=== PATIENT | male | born 1965 | race Caucasian/White ===

== ENCOUNTER 2018-07-23 04:00 | Observation (INO) ==
[2018-07-23] MEDS ORDERED: Isovue-370 500 ML BOTTLE IVP ONE (04:26)
[2018-07-23 05:12] LABS: Basophils # 0.1 K/mcL (0.0-0.2); Basophils % 0.7 %; Eosinophils # 0.2 K/mcL (0.0-0.6); Hematocrit 41.5 % (37.5-50.1); Hemoglobin 13.9 g/dL (12.9-16.9); Immature Granulocytes % 0.4 % (0-4); Lymphocytes % 12.7 %; Mean Corpuscular HGB Conc 33.5 g/dL (31.6-35.5); Mean Corpuscular Hemoglobin 30.3 pg (28.0-33.3); Mean Corpuscular Volume 90.6 fL (83.0-100.0); Monocytes # 0.7 K/mcL (0.0-1.3); Monocytes % 9.7 %; Neutrophils # 5.7 K/mcL (1.6-8.9); Platelet Count 256 K/mcL (140-400); Red Blood Count 4.58 M/mcL (4.19-5.50); Red Cell Distribution Width 12.5 % (11.5-14.5); Segmented Neutrophils % 74.5 %
[2018-07-23 05:36] LABS: Alanine Aminotransferase 23 Units/L (7-52); Albumin 3.9 g/dL (3.5-5.7); Albumin/Globulin Ratio 1.2 (1.1-2.2); Alkaline Phosphatase 169 Units/L (34-104); Aspartate Amino Transferase 18 Units/L (13-39); BUN/Creatinine Ratio 10 (6-26); Bilirubin,Direct 0.2 mg/dL (0.0-0.2); Bilirubin,Total 1.2 mg/dL (0.3-1.0); Blood Urea Nitrogen 12 mg/dL (6-20); Calcium 9.8 mg/dL (8.6-10.3); Carbon Dioxide 27 mEq/L (23-29); Chloride 107 mEq/L (98-107); Ethanol < 10 mg/dL (Less than 10); Globulin 3.3 g/dL (2.4-3.5); Glucose 114 mg/dL (70-105); Osmolality,Calculated 295 (280-300); Potassium 3.5 mEq/L (3.5-5.1); Sodium 142 mEq/L (136-145); Total Protein 7.2 g/dL (6.4-8.9); Troponin I < 0.03 ng/mL (< 0.04); eGFR For Non-African Americans > 60 (> 60)
--- NOTE | 2018-07-23 05:47 | Emergency Department Note ---
Disposition Clinical Impression: Pulmonary embolism Qualifiers: Pulmonary embolism type: unspecified Chronicity: acute Acute cor pulmonale presence: with acute cor pulmonale Qualified Code(s): I26.09 - Other pulmonary embolism with acute cor pulmonale Disposition: Still a Patient Condition: Fair Referrals: NONE,PCP [Primary Care Provider] - Forms: ED Satisfaction Letter Time of Disposition: 07:12 General Adult HPI - General Chief complaint: ED Shortness of Breath/Dyspnea Stated complaint: chest pain Time Seen by Provider: 07/23/18 04:23 Source: EMS Mode of arrival: EMS Limitations: no limitations Nursing Notes Reviewed: Yes Vital Signs Reviewed: Yes - History of Present Illness HPI Narrative: Pt is a 53M with Pmhx of remote HTN, alcohol abuse, recently seen at this facility after falling down stairs and sustaining facial fracture and lip laceration. Pt was transferred to [place] for that visit, but was given the option to stay and have surgery or return for further surgical consult later in the week. Uncertain if he had to sign out AMA - EMS reports he told them that he did, but pt denies this to me. Pt now returns with acute shortness of breath that developed while he was sleeping overnight about an hour [employer]. Pt states that the left side of his face has been numb since he was stitched up at [place] for sutures. Pt is A&Ox3. Pt admits to six pack of beer habit up until after his episode on . Pt denies any illicit substances. Pain Scale: 10 - Related Data Previous Rx's Medication Instructions Recorded Aspirin 81 mg PO DAILY #30 tab.chew 11/05/15 Lisinopril [Zestril] 5 mg PO DAILY #30 tablet 11/05/15 Allergies Allergy/AdvReac Type Severity Reaction Status Date / Time Cyclobenzaprine Allergy Rash Verified 11/17/16 18:55 [From Flexeril] Constitutional: Denies: fever, chills Cardiovascular: Denies: chest pain Respiratory: Reports: dyspnea Gastrointestinal: Denies: abdominal pain, nausea, vomiting, diarrhea, constipation Musculoskeletal: Denies: back pain, neck pain Neurological: Reports: headache. Denies: weakness, numbness, paresthesias Endocrine: Denies: fatigue, heat or cold intolerance Hematological/Lymphatic: Denies: easy bleeding, easy bruising Allergic/Immunologic: Denies: facial swelling, urticaria Past Medical History - Past Medical History Medical history: Reports: hypertension Surgical history: Reports: herniorrhaphy (right) Psychiatric history: Reports: no psych history - Social History Smoking Status: Never smoker Smokeless Tobacco Status: No Alcohol use: Reports: heavy Drug use: Reports: none Physical Exam - General Limitations: no limitations General appearance: alert - Head Head exam: other (left sided forehead abrasion, healing. Left lateral upper lip abrasion, healing) - Eye Eye exam: Present: PERRL, EOMI, other (ecchymosis underneath left eye) - ENT ENT exam: normal exam, normal oropharynx - Neck Neck exam: Present: normal inspection, full ROM - Chest Chest inspection: Present: normal inspection, symmetric chest wall rise - Respiratory Respiratory exam: Present: normal lung sounds bilaterally. Absent: respiratory distress - Cardiovascular Cardiovascular exam: Present: regular rate, normal rhythm - Abdominal Exam Abdominal exam: Present: soft, Non-Tender - Extremities Exam Extremities exam: Present: normal inspection, full ROM - Back Exam Back exam: Present: normal inspection, full ROM - Neurological Exam Neurological exam: Present: alert, oriented X3 - Psychiatric Psychiatric exam: Present: normal affect, normal mood - Skin Skin exam: Present: warm, dry, intact Course Course Narrative: With recent trauma, concern for PE, as well as occult rib fractures. Will obtain CTA chest. Will get UDS, CBC, BMP. - Reevaluation(s) Reevaluation #1: [facility] called and states he has selena PE, pulmonary nodule, CAD. Will start heparin. Time: 06:07 Vital Signs Temperature 98.7 F 07/23/18 04:15 Pulse Rate 81 07/23/18 04:15 Respiratory Rate 20 07/23/18 04:15 Blood Pressure 157/118 07/23/18 04:15 O2 Sat by Pulse Oximetry 98 07/23/18 04:15 Temperature 98.7 F 07/23/18 04:15 Pulse Rate 81 07/23/18 04:15 Respiratory Rate 20 07/23/18 04:15 Blood Pressure 157/118 07/23/18 04:15 O2 Sat by Pulse Oximetry 98 07/23/18 04:15 Oxygen Delivery Oxygen Delivery Room Air Medical Decision Making - MDM Narrative Medical decision making narrative: Pt will be signed out to day shift - Dr. Kennedy Samuel and Dr. Kirk Haynes. - Medical Records Medical records reviewed: Yes I reviewed the patient's medical records. - Lab Data Lab results reviewed: Yes I reviewed the patient's lab results. Result diagrams: 07/23/18 05:01 07/23/18 05:01 Lab Results 07/23/18 07/23/18 Range/Units 05:01 05:01 WBC 7.6 (4.3-11.1) K/mcL RBC 4.58 (4.19-5.50) M/mcL Hgb 13.9 (12.9-16.9) g/dL Hct 41.5 (37.5-50.1) % MCV 90.6 (83.0-100.0) fL MCH 30.3 (28.0-33.3) pg MCHC 33.5 (31.6-35.5) g/dL RDW 12.5 (11.5-14.5) % Plt Count 256 (140-400) K/mcL MPV 10.0 (9.4-12.4) fL Immature Gran % 0.4 (0-4) % Seg Neutrophils % 74.5 % Lymphocytes % 12.7 % Monocytes % 9.7 % Eosinophils % 2.0 % Basophils % 0.7 % Neutrophils # 5.7 (1.6-8.9) K/mcL Lymphocytes # 1.0 (0.6-4.6) K/mcL Monocytes # 0.7 (0.0-1.3) K/mcL Eosinophils # 0.2 (0.0-0.6) K/mcL Basophils # 0.1 (0.0-0.2) K/mcL Sodium 142 (136-145) mEq/L Potassium 3.5 (3.5-5.1) mEq/L Chloride 107 (98-107) mEq/L Carbon Dioxide 27 (23-29) mEq/L BUN 12 (6-20) mg/dL Creatinine 1.15 (0.70-1.30) mg/dL Est GFR ( Amer) > 60 (> 60) Est GFR (Non-Af Amer) > 60 (> 60) BUN/Creatinine Ratio 10 (6-26) Glucose 114 H (70-105) mg/dL Calculated Osmolality 295 (280-300) Calcium 9.8 (8.6-10.3) mg/dL Total Bilirubin 1.2 H (0.3-1.0) mg/dL Direct Bilirubin 0.2 (0.0-0.2) mg/dL Indirect Bilirubin 1.0 (0.0-1.2) mg/dL AST 18 (13-39) Units/L ALT 23 (7-52) Units/L Alkaline Phosphatase 169 H (34-104) Units/L Troponin I < 0.03 (< 0.04) ng/mL Serum Total Protein 7.2 (6.4-8.9) g/dL Albumin 3.9 (3.5-5.7) g/dL Globulin 3.3 (2.4-3.5) g/dL Albumin/Globulin Ratio 1.2 (1.1-2.2) Ethyl Alcohol < 10 (Less than 10) mg/dL - Radiology Data Radiology results reviewed: Yes I reviewed the patient's radiology results. Chest CTA 07/23/18 04:28 IMPRESSION: 1. Bilateral pulmonary emboli without evidence for right ventricular strain. 2. No rib fracture identified. 3. Coronary artery disease. 4. Right upper lobe pulmonary nodule. Recommend follow-up: Regardless of risk consider CT at 3 months, PET/CT, or tissue sampling. Critical results were called by Dr. Rashi Banegas MD to [facility] on 07/23/2018 at 06:07. D/ / Rashi Banegas MD / Rashi Banegas MD Interpreting Provider: Rashi Banegas MD - EKG Data EKG #1 EKG attestation: Yes I reviewed and interpreted this EKG. EKG results narrative: HR 72, rhythm sinus, axis normal. DC 164, QRS 105, QTc 415. No evidence of ST e levation or depression. Diffuse T wave flattening.
[2018-07-23] MEDS ORDERED: *HR* Heparin 5,000 UNIT/ML VIAL IVP PRN ×2 (06:34)
[2018-07-23] MEDS ORDERED: *HR* Heparin 5,000 UNIT/ML VIAL IVP ONE (06:34)
--- NOTE | 2018-07-23 06:43 | Emergency Department Note ---
Disposition Clinical Impression: Pulmonary embolism Qualifiers: Pulmonary embolism type: unspecified Chronicity: acute Acute cor pulmonale presence: with acute cor pulmonale Qualified Code(s): I26.09 - Other pulmonary embolism with acute cor pulmonale Disposition: Still a Patient Condition: Fair Referrals: NONE,PCP [Primary Care Provider] - Forms: ED Satisfaction Letter General Adult HPI - General Chief complaint: ED Shortness of Breath/Dyspnea Stated complaint: chest pain Time Seen by Provider: 07/23/18 04:23 Source: EMS Mode of arrival: EMS Limitations: no limitations Nursing Notes Reviewed: Yes Vital Signs Reviewed: Yes - History of Present Illness Pain Scale: 10 - Related Data Previous Rx's Medication Instructions Recorded Aspirin 81 mg PO DAILY #30 tab.chew 11/05/15 Lisinopril [Zestril] 5 mg PO DAILY #30 tablet 11/05/15 Allergies Allergy/AdvReac Type Severity Reaction Status Date / Time Cyclobenzaprine Allergy Rash Verified 11/17/16 18:55 [From Flexeril] Constitutional: Denies: fever, chills Cardiovascular: Denies: chest pain Respiratory: Reports: dyspnea Gastrointestinal: Denies: abdominal pain, nausea, vomiting, diarrhea, constipation Musculoskeletal: Denies: back pain, neck pain Neurological: Reports: headache. Denies: weakness, numbness, paresthesias Endocrine: Denies: fatigue, heat or cold intolerance Hematological/Lymphatic: Denies: easy bleeding, easy bruising Allergic/Immunologic: Denies: facial swelling, urticaria Past Medical History - Past Medical History Medical history: Reports: hypertension Surgical history: Reports: herniorrhaphy (right) Psychiatric history: Reports: no psych history - Social History Smoking Status: Never smoker Smokeless Tobacco Status: No Alcohol use: Reports: heavy Drug use: Reports: none Physical Exam - General Limitations: no limitations General appearance: alert Course Vital Signs Temperature 98.7 F 07/23/18 04:15 Pulse Rate 81 07/23/18 04:15 Respiratory Rate 20 07/23/18 04:15 Blood Pressure 157/118 07/23/18 04:15 O2 Sat by Pulse Oximetry 98 07/23/18 04:15 Temperature 98.7 F 07/23/18 04:15 Pulse Rate 70 07/23/18 07:16 Respiratory Rate 16 07/23/18 07:16 Blood Pressure 160/99 07/23/18 07:16 O2 Sat by Pulse Oximetry 98 07/23/18 07:16 Oxygen Delivery Oxygen Delivery Room Air Medical Decision Making - Medical Records Medical records reviewed: Yes I reviewed the patient's medical records. - Lab Data Lab results reviewed: Yes I reviewed the patient's lab results. Result diagrams: 07/23/18 05:01 07/23/18 05:01 Lab Results 07/23/18 07/23/18 07/23/18 Range/Units 05:01 05:01 06:55 WBC 7.6 (4.3-11.1) K/mcL RBC 4.58 (4.19-5.50) M/mcL Hgb 13.9 (12.9-16.9) g/dL Hct 41.5 (37.5-50.1) % MCV 90.6 (83.0-100.0) fL MCH 30.3 (28.0-33.3) pg MCHC 33.5 (31.6-35.5) g/dL RDW 12.5 (11.5-14.5) % Plt Count 256 (140-400) K/mcL MPV 10.0 (9.4-12.4) fL Immature Gran % 0.4 (0-4) % Seg Neutrophils % 74.5 % Lymphocytes % 12.7 % Monocytes % 9.7 % Eosinophils % 2.0 % Basophils % 0.7 % Neutrophils # 5.7 (1.6-8.9) K/mcL Lymphocytes # 1.0 (0.6-4.6) K/mcL Monocytes # 0.7 (0.0-1.3) K/mcL Eosinophils # 0.2 (0.0-0.6) K/mcL Basophils # 0.1 (0.0-0.2) K/mcL PT (9.4-12.1) Seconds INR APTT (26.0-36.0) Seconds Heparin Anti-Xa, Unfract 0.00 L (0.30-0.70) IU/mL Sodium 142 (136-145) mEq/L Potassium 3.5 (3.5-5.1) mEq/L Chloride 107 (98-107) mEq/L Carbon Dioxide 27 (23-29) mEq/L BUN 12 (6-20) mg/dL Creatinine 1.15 (0.70-1.30) mg/dL Est GFR ( Amer) > 60 (> 60) Est GFR (Non-Af Amer) > 60 (> 60) BUN/Creatinine Ratio 10 (6-26) Glucose 114 H (70-105) mg/dL Calculated Osmolality 295 (280-300) Calcium 9.8 (8.6-10.3) mg/dL Total Bilirubin 1.2 H (0.3-1.0) mg/dL Direct Bilirubin 0.2 (0.0-0.2) mg/dL Indirect Bilirubin 1.0 (0.0-1.2) mg/dL AST 18 (13-39) Units/L ALT 23 (7-52) Units/L Alkaline Phosphatase 169 H (34-104) Units/L Troponin I < 0.03 (< 0.04) ng/mL Serum Total Protein 7.2 (6.4-8.9) g/dL Albumin 3.9 (3.5-5.7) g/dL Globulin 3.3 (2.4-3.5) g/dL Albumin/Globulin Ratio 1.2 (1.1-2.2) Ethyl Alcohol < 10 (Less than 10) mg/dL 07/23/18 Range/Units 06:55 WBC (4.3-11.1) K/mcL RBC (4.19-5.50) M/mcL Hgb (12.9-16.9) g/dL Hct (37.5-50.1) % MCV (83.0-100.0) fL MCH (28.0-33.3) pg MCHC (31.6-35.5) g/dL RDW (11.5-14.5) % Plt Count (140-400) K/mcL MPV (9.4-12.4) fL Immature Gran % (0-4) % Seg Neutrophils % % Lymphocytes % % Monocytes % % Eosinophils % % Basophils % % Neutrophils # (1.6-8.9) K/mcL Lymphocytes # (0.6-4.6) K/mcL Monocytes # (0.0-1.3) K/mcL Eosinophils # (0.0-0.6) K/mcL Basophils # (0.0-0.2) K/mcL PT 13.0 H (9.4-12.1) Seconds INR 1.2 APTT 30.6 (26.0-36.0) Seconds Heparin Anti-Xa, Unfract (0.30-0.70) IU/mL Sodium (136-145) mEq/L Potassium (3.5-5.1) mEq/L Chloride (98-107) mEq/L Carbon Dioxide (23-29) mEq/L BUN (6-20) mg/dL Creatinine (0.70-1.30) mg/dL Est GFR ( Amer) (> 60) Est GFR (Non-Af Amer) (> 60) BUN/Creatinine Ratio (6-26) Glucose (70-105) mg/dL Calculated Osmolality (280-300) Calcium (8.6-10.3) mg/dL Total Bilirubin (0.3-1.0) mg/dL Direct Bilirubin (0.0-0.2) mg/dL Indirect Bilirubin (0.0-1.2) mg/dL AST (13-39) Units/L ALT (7-52) Units/L Alkaline Phosphatase (34-104) Units/L Troponin I (< 0.04) ng/mL Serum Total Protein (6.4-8.9) g/dL Albumin (3.5-5.7) g/dL Globulin (2.4-3.5) g/dL Albumin/Globulin Ratio (1.1-2.2) Ethyl Alcohol (Less than 10) mg/dL - Radiology Data Radiology results reviewed: Yes I reviewed the patient's radiology results. Chest CTA 07/23/18 04:28 IMPRESSION: 1. Bilateral pulmonary emboli without evidence for right ventricular strain. 2. No rib fracture identified. 3. Coronary artery disease. 4. Right upper lobe pulmonary nodule. Recommend follow-up: Regardless of risk consider CT at 3 months, PET/CT, or tissue sampling. Critical results were called by Dr. Rashi Banegas MD to [facility] on 07/23/2018 at 06:07. D/ / Rashi Banegas MD / Rashi Banegas MD Interpreting Provider: Rashi Banegas MD - EKG Data EKG #1 EKG attestation: Yes I reviewed and interpreted this EKG. EKG results narrative: EKG shows normal sinus rhythm with ventricular rate of 72. No significant ST segment elevation or depression. Critical Care Time Critical Care Time: Yes Total Critical Care Time: 45 Attestation: Critical care performed: Time is exclusive of separately billable procedures. Time includes: direct patient care, patient reassessment, coordination of patient care, interpretation of data (laboratory data, radiology data, and respiratory data), review of patient's medical records, medical consultation and documentation of patient care. Procedures included in critical care time: Procedures excluded from critical care time: Attestation Statement - Attestation Attestation: I, Tray Cho MD, personally evaluated this patient and discussed their management with the resident physician. I reviewed the resident's note and agree with the documented findings, medical decision making, and plan of care. 53-year-old male presents to the emergency department with a complaint that he awoke from sleep about 1 hour prior to arrival and could not catch his breath. No cough or fever. Some left lateral lower chest pain. Patient fell down stairs about 3 or 4 days ago and was seen here and transferred to [facility]. He apparently had a facial fracture. He complains of having this left lateral chest pain ever since the fall. By the time he arrived to the emergency department he states that his breathing was feeling somewhat better. He denies history of breathing issues. On examination patient is a well-developed well-nourished male in no acute distress. He is alert and oriented 3. There is no cyanosis or diaphoresis. There is some tenderness over the left lower lateral chest wall. No bony crepitus or subcutaneous emphysema. Breath sounds are clear and equal bilatera lly. Heart regular rate and rhythm. Abdomen soft and nontender with normal bowel sounds. EKG shows normal sinus rhythm in no acute changes. Labs reviewed. CTA of the chest showed multiple bilateral pulmonary emboli. Patient started on heparin infusion. The hospitalist, Dr. Modi, was consulted for admission. He refused to accept the patient for admission because of his facial fracture from a fall 4 days ago for which he has been evaluated at the trauma center and has outpatient follow-up. We did not feel that there was an indication this patient have to be transferred back to the trauma center so patient is signed out to the oncoming dayshift team, Dr. Haynes and Dr. Kennedy Samuel. They will discussed with the [facility] to see if they are willing to accept patient or if they also recommended transfer.
[2018-07-23] MEDS ORDERED: Heparin 25,000 UNIT/250 ML D5W 25,000 UNIT/250 ML IV.SOLN IVC SCH (06:45)
[2018-07-23 07:24] LABS: INR 1.2
[2018-07-23 07:27] LABS: Activated Partial Thrombo Time 30.6 Seconds (26.0-36.0)
[2018-07-23] MEDS ORDERED: Naloxone 0.4 MG/ML INJ IVP PRN (09:34)
[2018-07-23] MEDS ORDERED: Acetaminophen 325 MG TABLET PO PRN (09:51)
--- NOTE | 2018-07-23 10:35 | Internal Med History&Physical ---
Date of Encounter: 07/23/18 Time of Encounter: 09:00 Internal Medicine - H&P: HPI Chief complaint: Shortness of breath Admitted From: Home Plans for Post Hospital Care: Home History of present illness: Mr. Leung is a 53 year old male who has no significant past medical history presented with shortness of breath which woke him up early this morning at around 3:57 AM. The patient said that he went to bed fine but woke up trying to catch his breath. He denies any overt chest pain or dizziness or palpitations, headache, nausea or vomiting along with the symptoms. The patient drinks almost daily about 5-6 beers and has been doing so for last 30 years. About 4 days ago he was seen in the ER with an accidental fall down a flight of stairs. He was evaluated as a trauma case and had a negative head CT for intracranial bleeding but was found to have a left sided zygomatic fracture. No other fractures were also found at that time and he was sent to [facility] for evaluation as a trauma patient. As per the patient's history, he was seen and evaluated at [facility], cleared for his zygomatic fracture and a plan was to have him see an outpatient plastic surgeon for the same. The patient denies any recent prolonged hospitalization or immobility-he is in fact a very active and on his feet most of the time. He does not have any family history of blood clots or predisposition genetic to making blood clots In the ER the patient received a CTpe protocol found to have bilateral pulmonary embolism. He has been started on heparin drip and placed for observation on the medical service. Past Med Surg Social Fam HX - Past Medical History Medical history: hypertension Psychiatric history: no psych history - Past Surgical History Surgical History: herniorrhaphy Additional surgical history: hernia repair - Social History Smoking Status: Never smoker Smokeless Tobacco Status: No Alcohol use: heavy Drug use: none - Family History Mother Hx Family Endocrine Disorder: Yes (DM) - Additional Family History Additional family history: No family history suggestive of hypercoagulable state in immediate relatives Internal Medicine - H&P: Meds Aspirin 81 mg PO DAILY #30 tab.chew 11/05/15 [Rx] Lisinopril [Zestril] 5 mg PO DAILY #30 tablet 11/05/15 [Rx] Allergy/AdvReac Type Severity Reaction Status Date / Time Cyclobenzaprine Allergy Rash Verified 11/17/16 18:55 [From Flexeril] All Systems PM: A 10-system review of systems was performed and is negative for pertinent findings except as documented above in the HPI. - Constitutional Vitals: Temp Pulse Resp BP Pulse Ox 99.8 F H 66 16 148/93 94 07/23/18 10:02 07/23/18 10:02 07/23/18 10:02 07/23/18 10:02 07/23/18 10:02 Exam: GENERAL: Alert, moderate distress, cooperative EYES: PERRLA, EOMI, there is a small contusion underneath the left eye and tenderness to palpation castillo the left maxillary bone, patient also has a small contusion on the left side of the forehead EARS: External ears normal, canals clear OROPHARYNX: Lips, mucosa, and tongue normal. Teeth and gums normal. Oropharynx normal. NECK: No jugulovenous distention, No carotid bruits, Carotid pulse normal contour, Supple LUNGS: Lungs clear to auscultation, Good diaphragmatic excursion CARDIAC: Normal S1 and S2; no rubs, murmurs, or gallops, TTP over left lower rib cage ABDOMEN: Abdomen soft, non-tender, BS normal, No masses or organomegaly EXTREMITIES: Extremities normal, no deformities, edema, clubbing or skin discoloration. Good capillary refill., No ulcers NEURO: Gait normal. Reflexes normal and symmetric. Sensation grossly intact, Cranial nerves II-XII intact PULSES: 2+ radial, 2+ carotid Rest of the exam is non contributory Internal Med - H&P Results - Labs CBC & Chem 7: 07/23/18 05:01 07/23/18 05:01 Labs: Short CBC 07/23/18 Range/Units 05:01 WBC 7.6 (4.3-11.1) K/mcL Hgb 13.9 (12.9-16.9) g/dL Hct 41.5 (37.5-50.1) % Plt Count 256 (140-400) K/mcL Neutrophils # 5.7 (1.6-8.9) K/mcL BMP 07/23/18 05:01 Sodium 142 Potassium 3.5 Chloride 107 Carbon Dioxide 27 BUN 12 Creatinine 1.15 Glucose 114 H Calcium 9.8 Cardiac Enzymes 07/23/18 Range/Units 05:01 Troponin I < 0.03 (< 0.04) ng/mL Liver Function 07/23/18 Range/Units 05:01 Total Bilirubin 1.2 H (0.3-1.0) mg/dL Direct Bilirubin 0.2 (0.0-0.2) mg/dL AST 18 (13-39) Units/L ALT 23 (7-52) Units/L Alkaline Phosphatase 169 H (34-104) Units/L Albumin 3.9 (3.5-5.7) g/dL - EKG Data -: EKG Interpreted by Myself EKG shows normal: sinus rhythm Rate: normal - EKG Data Prior EKG available for review: yes When compared to previous EKG: there is no significant change - Impressions ITS Impressions Chest CTA 07/23/18 04:28 IMPRESSION: 1. Bilateral pulmonary emboli without evidence for right ventricular strain. 2. No rib fracture identified. 3. Coronary artery disease. 4. Right upper lobe pulmonary nodule. Recommend follow-up: Regardless of risk consider CT at 3 months, PET/CT, or tissue sampling. Critical results were called by Dr. Rashi Banegas MD to Hortensia New on 07/23/2018 at 06:07. D/ / Rashi Banegas MD / Rashi Banegas MD Interpreting Provider: Rashi Banegas MD - Diagnostic Studies CT scan - chest Status: image reviewed by me (Bilateral pulmonary embolism in both lung casas especially upper lung casas) - Assessment and Plan (1) Pulmonary embolism Current Visit: Yes Status: Acute Assessment and plan: Evidence of acute pulmonary embolism has been found in this visit and this appears to be non-provoked. The patient does not have any warning symptoms or signs suggestive of an underlying malignancy Hypercoagulable workup would need to be established as an outpatient and we will set him up with outpatient hematology at discharge. He denies any leg swelling in the preceding few days and has an active lifestyle He has not had prolonged immobilization or long flights or long road trips recently. In the light of his recent fall and zygomatic fracture, I discussed this case with detention worker general surgery Dr. Devlin, who suggested that it is okay to start him on anticoagulations and observe him especially given that his head CT was negative for any acute bleeds recently. If he has any worsening of the swelling over the zygomatic bone on the left side then we will consider transferring him out. We will start him on oral anticoagulation which he at least needs 3 months of in the form of Coumadin. I have already discussed this with pharmacist who will also be consulted for critical condition management with Coumadin. This is one case where it is worth observing him inpatient for 24-48 hours on IV heparin as he is bridged towards Coumadin given the recent fracture and fall. We will continue to closely monitor his respiratory status but he does remain on room air currently. Qualifiers: Pulmonary embolism type: unspecified Chronicity: acute Acute cor pulmonale presence: without acute cor pulmonale Qualified Code(s): I26.99 - Other pulmonary embolism without acute cor pulmonale (2) Dyspnea Current Visit: Yes Status: Acute Assessment and plan: Most likely etiology of his dyspnea is bilateral pulmonary embolism as already found. I will continue to cycle his cardiac enzymes to make sure he does not have a cardiac etiology also. This is low risk from a cardiac standpoint. The patient also does have evidence of costochondritis on the left lower rib cage presumably from his fall. His last x-ray on does not show any overt rib fractures This is also another additional contributor to his dyspnea. For the costochondritis I would like to initiate Lidoderm patch over his left lower chest wall Qualifiers: Dyspnea type: shortness of breath Qualified Code(s): R06.02 - Shortness of breath; R06.00 - Dyspnea, unspecified; R06.01 - Orthopnea (3) Zygomatic fracture, left side, subsequent encounter for fracture with delayed healing Current Visit: Yes Status: Acute Assessment and plan: I have asked the senior front end web developer to obtain medical records from [place]. He will thom ntually need an outpatient follow-up with plastic surgery the way it was planned upon his discharge from [facility]. He was not advised any operative intervention right away and was in fact cleared, as per the patient history Qualifiers: Fracture type: closed Qualified Code(s): S02.40FG - Zygomatic fracture, left side, subsequent encounter for fracture with delayed healing - Time Spent With Patient Total time spent is greater than 50% in coordination of care (as documented) at patient's floor/unit and/or counseling patient: Greater than 35 minutes - VTE Reasons for not Prescribing Prophylaxis: Not indicated-Anticoagulated or INR therapeutic
--- NOTE | 2018-07-23 10:57 | Emergency Department Note ---
Disposition Clinical Impression: Pulmonary embolism Qualifiers: Pulmonary embolism type: unspecified Chronicity: acute Acute cor pulmonale presence: without acute cor pulmonale Qualified Code(s): I26.99 - Other pulmonary embolism without acute cor pulmonale Disposition: Admitted As Inpatient Condition: Fair Referrals: NONE,PCP [Primary Care Provider] - SOB HPI - General Chief Complaint: ED Shortness of Breath/Dyspnea Stated Complaint: chest pain Time Seen by Provider: 07/23/18 04:23 Source: EMS Mode of arrival: EMS Limitations: no limitations Nursing Notes Reviewed: Yes Vital Signs Reviewed: Yes - History of Present Illness 53-year-old male received in signout pending admission to the hospital. Patient has a history of recent trauma he was evaluated at [facility] and has plastic surgery follow-up for facial fractures. Patient presented during the night with increased shortness breath and was found to have pulmonary embolism. He started on heparin in the emergency department. Patient was told that he was not a surgical candidate at [facility] and was therefore following up as outpatient. Patient will be admitted to the hospital for further care and evaluation of his pulmonary embolism. - Related Data Previous Rx's Medication Instructions Recorded Aspirin 81 mg PO DAILY #30 tab.chew 11/05/15 Lisinopril [Zestril] 5 mg PO DAILY #30 tablet 11/05/15 Allergies Allergy/AdvReac Type Severity Reaction Status Date / Time Cyclobenzaprine Allergy Rash Verified 11/17/16 18:55 [From Flexeril] Constitutional: Denies: fever, chills Cardiovascular: Denies: chest pain Respiratory: Reports: dyspnea Gastrointestinal: Denies: abdominal pain, nausea, vomiting, diarrhea, constipation Musculoskeletal: Denies: back pain, neck pain Neurological: Reports: headache. Denies: weakness, numbness, paresthesias Endocrine: Denies: fatigue, heat or cold intolerance Hematological/Lymphatic: Denies: easy bleeding, easy bruising Allergic/Immunologic: Denies: facial swelling, urticaria Past Medical History - Past Medical History Medical history: Reports: hypertension Surgical history: Reports: herniorrhaphy Psychiatric history: Reports: no psych history - Social History Smoking Status: Never smoker Smokeless Tobacco Status: No Alcohol use: Reports: heavy Drug use: Reports: none Physical Exam - General Limitations: no limitations General appearance: alert Course Vital Signs Temperature 98.7 F 07/23/18 04:15 Pulse Rate 81 07/23/18 04:15 Respiratory Rate 20 07/23/18 04:15 Blood Pressure 157/118 07/23/18 04:15 O2 Sat by Pulse Oximetry 98 07/23/18 04:15 Temperature 99.8 F H 07/23/18 10:02 Pulse Rate 66 07/23/18 10:02 Respiratory Rate 16 07/23/18 10:02 Blood Pressure 148/93 07/23/18 10:02 O2 Sat by Pulse Oximetry 94 07/23/18 10:02 Oxygen Delivery Oxygen Delivery Room Air Shortness of Breath/Dyspnea - Lab Data Result diagrams: 07/23/18 05:01 07/23/18 05:01 Lab Results 07/23/18 07/23/18 07/23/18 Range/Units 05:01 05:01 06:55 WBC 7.6 (4.3-11.1) K/mcL RBC 4.58 (4.19-5.50) M/mcL Hgb 13.9 (12.9-16.9) g/dL Hct 41.5 (37.5-50.1) % MCV 90.6 (83.0-100.0) fL MCH 30.3 (28.0-33.3) pg MCHC 33.5 (31.6-35.5) g/dL RDW 12.5 (11.5-14.5) % Plt Count 256 (140-400) K/mcL MPV 10.0 (9.4-12.4) fL Immature Gran % 0.4 (0-4) % Seg Neutrophils % 74.5 % Lymphocytes % 12.7 % Monocytes % 9.7 % Eosinophils % 2.0 % Basophils % 0.7 % Neutrophils # 5.7 (1.6-8.9) K/mcL Lymphocytes # 1.0 (0.6-4.6) K/mcL Monocytes # 0.7 (0.0-1.3) K/mcL Eosinophils # 0.2 (0.0-0.6) K/mcL Basophils # 0.1 (0.0-0.2) K/mcL PT (9.4-12.1) Seconds INR APTT (26.0-36.0) Seconds Heparin Anti-Xa, Unfract 0.00 L (0.30-0.70) IU/mL Sodium 142 (136-145) mEq/L Potassium 3.5 (3.5-5.1) mEq/L Chloride 107 (98-107) mEq/L Carbon Dioxide 27 (23-29) mEq/L BUN 12 (6-20) mg/dL Creatinine 1.15 (0.70-1.30) mg/dL Est GFR ( Amer) > 60 (> 60) Est GFR (Non-Af Amer) > 60 (> 60) BUN/Creatinine Ratio 10 (6-26) Glucose 114 H (70-105) mg/dL Calculated Osmolality 295 (280-300) Calcium 9.8 (8.6-10.3) mg/dL Total Bilirubin 1.2 H (0.3-1.0) mg/dL Direct Bilirubin 0.2 (0.0-0.2) mg/dL Indirect Bilirubin 1.0 (0.0-1.2) mg/dL AST 18 (13-39) Units/L ALT 23 (7-52) Units/L Alkaline Phosphatase 169 H (34-104) Units/L Troponin I < 0.03 (< 0.04) ng/mL Serum Total Protein 7.2 (6.4-8.9) g/dL Albumin 3.9 (3.5-5.7) g/dL Globulin 3.3 (2.4-3.5) g/dL Albumin/Globulin Ratio 1.2 (1.1-2.2) Ethyl Alcohol < 10 (Less than 10) mg/dL 07/23/18 Range/Units 06:55 WBC (4.3-11.1) K/mcL RBC (4.19-5.50) M/mcL Hgb (12.9-16.9) g/dL Hct (37.5-50.1) % MCV (83.0-100.0) fL MCH (28.0-33.3) pg MCHC (31.6-35.5) g/dL RDW (11.5-14.5) % Plt Count (140-400) K/mcL MPV (9.4-12.4) fL Immature Gran % (0-4) % Seg Neutrophils % % Lymphocytes % % Monocytes % % Eosinophils % % Basophils % % Neutrophils # (1.6-8.9) K/mcL Lymphocytes # (0.6-4.6) K/mcL Monocytes # (0.0-1.3) K/mcL Eosinophils # (0.0-0.6) K/mcL Basophils # (0.0-0.2) K/mcL PT 13.0 H (9.4-12.1) Seconds INR 1.2 APTT 30.6 (26.0-36.0) Seconds Heparin Anti-Xa, Unfract (0.30-0.70) IU/mL Sodium (136-145) mEq/L Potassium (3.5-5.1) mEq/L Chloride (98-107) mEq/L Carbon Dioxide (23-29) mEq/L BUN (6-20) mg/dL Creatinine (0.70-1.30) mg/dL Est GFR ( Amer) (> 60) Est GFR (Non-Af Amer) (> 60) BUN/Creatinine Ratio (6-26) Glucose (70-105) mg/dL Calculated Osmolality (280-300) Calcium (8.6-10.3) mg/dL Total Bilirubin (0.3-1.0) mg/dL Direct Bilirubin (0.0-0.2) mg/dL Indirect Bilirubin (0.0-1.2) mg/dL AST (13-39) Units/L ALT (7-52) Units/L Alkaline Phosphatase (34-104) Units/L Troponin I (< 0.04) ng/mL Serum Total Protein (6.4-8.9) g/dL Albumin (3.5-5.7) g/dL Globulin (2.4-3.5) g/dL Albumin/Globulin Ratio (1.1-2.2) Ethyl Alcohol (Less than 10) mg/dL
--- NOTE | 2018-07-23 17:22 | Electrocardiograph Report ---
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
[2018-07-23] MEDS ORDERED: Warfarin perPT PO PRN (18:00)
[2018-07-23] MEDS ORDERED: *HR* Warfarin 5 MG TABLET PO ONE (18:00)
[2018-07-24 05:40] LABS: INR 1.2; Prothrombin Time 13.8 Seconds (9.4-12.1)
[2018-07-24 05:42] LABS: Heparin anti-factor XA UFH 0.36 IU/mL (0.30-0.70)
[2018-07-24] MEDS ORDERED: traMADol 50 MG TABLET PO PRN ×2 (06:17→09:04)
[2018-07-24 07:26] VITALS: BP 119/79
[2018-07-24] MEDS ORDERED: *HR* Enoxaparin 80 MG/0.8 ML SYRINGE SQ SCH (09:00)
[2018-07-24] MEDS ORDERED: Apixaban 5 MG TABLET PO SCH (09:00)
--- NOTE | 2018-07-24 11:22 | Discharge Summary ---
- NOTES TO OUTPATIENT PROVIDER Notes to Outpatient Provider: PC 2-5 days, facial surgery in 1 wk, PCP for hemonc referral in 4-6 weeks Orders not resulted at time of discharge: Pending orders 07/25/18 04:00 INR/PT [Prothrombin Time INR] [COAG] AM 0400 07/25/18 05:00 Heparin anti-factor XA UFH [COAG] Timed 07/26/18 04:00 INR/PT [Prothrombin Time INR] [COAG] AM 0400 07/27/18 04:00 INR/PT [Prothrombin Time INR] [COAG] AM 0400 07/28/18 04:00 INR/PT [Prothrombin Time INR] [COAG] AM 040 Date of Encounter: 07/24/18 Time of Encounter: 11:20 - Discharge Diagnosis (1) Pulmonary embolism Priority: Primary Status: Acute Qualifiers: Pulmonary embolism type: unspecified Chronicity: acute Acute cor pulmonale presence: without acute cor pulmonale Qualified Code(s): I26.99 - Other pulmonary embolism without acute cor pulmonale Hospital course: Mr. Leung is a 53 year old male who has no significant past medical history presented with shortness of breath which woke him up early this morning at around 3:57 AM. The patient said that he went to bed fine but woke up trying to catch his breath. He denies any overt chest pain or dizziness or palpitations, headache, nausea or vomiting along with the symptoms. The patient drinks almost daily about 5-6 beers and has been doing so for last 30 years. About 4 days ago he was seen in the ER with an accidental fall down a flight of stairs. He was evaluated as a trauma case and had a negative head CT for intracranial bleeding but was found to have a left sided zygomatic fracture. No other fractures were also found at that time and he was sent to [facility] for evaluation as a trauma patient. Pt was kept in the hospital and pt was started on heparin and pt tolerated well, no other issues. Today, we found pt has insurance and cover the eliquis, pt will be going home with eliquis and we are setting him up with PCP and PCP will need to do hemonc referral as out pt. - Time Spent with Patient Total time spent providing and/or coordinating discharge services: - Discharge Medications Prescriptions: No Action No Known Home Drugs 1 each .ROUTE AD each Home Medications: No Known Home Drugs 07/23/18 [History] Allergies/Adverse Reactions: Allergy/AdvReac Type Severity Reaction Status Date / Time Cyclobenzaprine Allergy Rash Verified 07/23/18 16:30 [From Flexeril] Date of admission: 07/23/18 09:56 Primary care physician: PCP NONE - Constitutional Vitals: Temp Pulse Resp BP Pulse Ox 99.1 F 77 18 119/79 92 07/24/18 07:25 07/24/18 07:25 07/24/18 07:25 07/24/18 07:25 07/24/18 09:30 Exam: GENERAL: Alert, moderate distress, cooperative EYES: PERRLA, EOMI, there is a small contusion underneath the left eye and tenderness to palpation castillo the left maxillary bone, patient also has a small contusion on the left side of the forehead EARS: External ears normal, canals clear OROPHARYNX: Lips, mucosa, and tongue normal. Teeth and gums normal. Oropharynx normal. NECK: No jugulovenous distention, No carotid bruits, Carotid pulse normal contour, Supple LUNGS: Lungs clear to auscultation, Good diaphragmatic excursion CARDIAC: Normal S1 and S2; no rubs, murmurs, or gallops, TTP over left lower rib cage ABDOMEN: Abdomen soft, non-tender, BS normal, No masses or organomegaly EXTREMITIES: Extremities normal, no deformities, edema, clubbing or skin discoloration. Good capillary refill., No ulcers NEURO: Gait normal. Reflexes normal and symmetric. Sensation grossly intact, Cranial nerves II-XII intact PULSES: 2+ radial, 2+ carotid Rest of the exam is non contributory - Patient Status Disposition: Home, Self-Care Condition: Fair - Discharge Instructions Follow Up With: NONE,PCP [Primary Care Provider] - Forms: ED Satisfaction Letter - VTE Reasons for not Prescribing Prophylaxis: Not indicated-Anticoagulated or INR therapeutic
[2018-07-24] MEDS ORDERED: Warfarin perPT PO PRN (18:00)
[2018-07-24] MEDS ORDERED: *HR* Warfarin 5 MG TABLET PO ONE (18:00)
== END 2018-07-24 14:10 | disposition home or self-care (01) ==
LOC: EMEROOARM 04:00 → INTOOBSV 08:30 → 2ANU 08:30 → SUATTDRO 09:56
PROVIDERS: ADMIT Internal Medicine; ATTEND Internal Medicine

== ENCOUNTER 2018-08-05 19:21 | Observation (INO) ==
[2018-08-05] MEDS ORDERED: Orphenadrine 100 MG TABLET.ER PO ONE (19:35)
--- NOTE | 2018-08-05 19:37 | Emergency Department Note ---
Disposition Clinical Impression: Bilateral pulmonary embolism Disposition: Admitted As Inpatient Condition: Fair Referrals: NONE,PCP [Primary Care Provider] - Forms: ED Satisfaction Letter Time of Disposition: 21:55 General Adult HPI - General Chief complaint: ED Shortness of Breath/Dyspnea Stated complaint: JANELL Time Seen by Provider: 08/05/18 19:32 - History of Present Illness Pain Scale: 10 - Related Data Previous Rx's Medication Instructions Recorded Apixaban [Eliquis] 10 mg PO BID #90 tablet 07/24/18 Methocarbamol [Robaxin] 500 mg PO Q8HR PRN #12 tablet 07/29/18 predniSONE [PredniSONE] 20 mg PO BIDWM #10 tablet 07/29/18 Allergies Allergy/AdvReac Type Severity Reaction Status Date / Time Cyclobenzaprine Allergy Rash Verified 08/05/18 19:32 [From Flexeril] Past Medical History - Past Medical History Medical history: Reports: hypertension Surgical history: Reports: herniorrhaphy Psychiatric history: Reports: no psych history - Social History Smoking Status: Never smoker Smokeless Tobacco Status: No Alcohol use: Reports: none Drug use: Reports: none Course Vital Signs O2 Sat by Pulse Oximetry 96 08/05/18 19:31 Temperature 98.6 F 08/05/18 19:36 Pulse Rate 87 08/05/18 19:41 Respiratory Rate 18 08/05/18 19:41 Blood Pressure 169/106 08/05/18 19:41 O2 Sat by Pulse Oximetry 97 08/05/18 19:43 Oxygen Delivery Oxygen Delivery Room Air Medical Decision Making - Lab Data Result diagrams: 08/05/18 19:47 08/05/18 19:47 Lab Results 08/05/18 08/05/18 08/05/18 Range/Units 19:47 19:47 19:47 WBC 7.7 (4.3-11.1) K/mcL RBC 4.43 (4.19-5.50) M/mcL Hgb 13.5 (12.9-16.9) g/dL Hct 39.9 (37.5-50.1) % MCV 90.1 (83.0-100.0) fL MCH 30.5 (28.0-33.3) pg MCHC 33.8 (31.6-35.5) g/dL RDW 13.5 (11.5-14.5) % Plt Count 325 (140-400) K/mcL MPV 10.1 (9.4-12.4) fL Immature Gran % 0.4 (0-4) % Seg Neutrophils % 68.3 % Lymphocytes % 20.5 % Monocytes % 7.9 % Eosinophils % 2.5 % Basophils % 0.4 % Neutrophils # 5.3 (1.6-8.9) K/mcL Lymphocytes # 1.6 (0.6-4.6) K/mcL Monocytes # 0.6 (0.0-1.3) K/mcL Eosinophils # 0.2 (0.0-0.6) K/mcL Basophils # 0.0 (0.0-0.2) K/mcL Sodium 138 (136-145) mEq/L Potassium 4.3 (3.5-5.1) mEq/L Chloride 109 H (98-107) mEq/L Carbon Dioxide 20 L (23-29) mEq/L BUN 18 (6-20) mg/dL Creatinine 0.99 (0.70-1.30) mg/dL Est GFR ( Amer) > 60 (> 60) Est GFR (Non-Af Amer) > 60 (> 60) BUN/Creatinine Ratio 18 (6-26) Glucose 114 H (70-105) mg/dL Calculated Osmolality 289 (280-300) Calcium 9.5 (8.6-10.3) mg/dL Troponin I < 0.03 (< 0.04) ng/mL B-Natriuretic Peptide 39 (Less than 100) pg/mL Critical Care Time Critical Care Time: Yes Total Critical Care Time: 40 Attestation: Critical care performed: Time is exclusive of separately billable procedures. Time includes: direct patient care, patient reassessment, coordination of patient care, interpretation of data (laboratory data, radiology data, and respiratory data), review of patient's medical records, medical consultation and documentation of patient care. Procedures included in critical care time: Procedures excluded from critical care time: Attestation Statement - Attestation Attestation: I examined this patient and my medical decision-making was reviewed with the Resident Physician. I agree with the documented findings, disposition and treatment plan as described except to the extent set forth below. Patient to the ED complaining of shortness of breath. Dyspnea on exertion. Patient recently had a traumatic fall. He was diagnosed with a PE. His been office Eliquis for the past 2 weeks. Denies cough or fever. His lungs are clear with good air exchange bilaterally. Plan. Cardiac workup with CTA. EKG is normal sinus rhythm at 79. Normal QRS. Nonspecific ST changes in the inferior leads. Normal axis. QTC 420. Unchanged from EKG on July 23. CT shows worsening. Pulmonary emboli. Likely secondary to the patient not t aking his anticoagulation. Patient was started on heparin and admitted to the hospitalist. He is hemolytically stable here. Chest X-Ray 08/05/18 19:35 IMPRESSION: New left basilar consolidation concerning for a combination of left pleural effusion and left lower lung pneumonia or atelectasis. D/ / Kamran Quezada / Kamran Quezada Interpreting Provider: Kamran Quezada Chest CTA 08/05/18 20:12 IMPRESSION: Multiple new bilateral pulmonary emboli with the largest at the segmental level. No evidence of right heart strain. Mild left basilar airspace disease could represent atelectasis, pneumonia or less likely developing infarct. Findings were discussed with Dr. Nida Schwab at 9:49 pm on 08/05/2018. D/ / Eric Robles MD / Eric Robles MD Interpreting Provider: Eric Robles MD
--- NOTE | 2018-08-05 19:48 | Emergency Department Note ---
Disposition Clinical Impression: Bilateral pulmonary embolism Disposition: Admitted As Inpatient Condition: Fair Time of Disposition: 22:47 SOB HPI - General Chief Complaint: ED Shortness of Breath/Dyspnea Stated Complaint: JANELL Time Seen by Provider: 08/05/18 19:32 Source: patient, EMS Mode of arrival: EMS Limitations: no limitations Nursing Notes Reviewed: Yes Vital Signs Reviewed: Yes - History of Present Illness Patient presenting to the ED via EMS with chief complaint of chest pain and shortness breath. I personally saw this patient on one of his ED visits within the last few weeks. He was seen here originally as a trauma after alcohol intoxication and transferred to [facility] in [place]. He was found to have a facial fracture that time and no other injuries. Was told to follow-up with plastics as an outpatient. He presented to the ED again with left-sided chest pain and shortness of breath. He was subsequently transferred back to [facility] where a CT angiogram found that he had a left-sided pulmonary embolism. He was started on Eliquis. States that after he got home, which was about 2 weeks ago his girlfriend accidentally threw away his Eliquis and he has not had it since then. He does not have primary care and his had no one to refill the prescription. States that over the last few days he has had progressively worsening exertional dyspnea and left-sided chest pain consistent with his previous episodes. Denies any new symptoms, but does state that his symptoms are getting worse. Denies any fever or chills. Nonproductive cough. Denies any abdominal pain, nausea, vomiting, diarrhea, rash. No pain or swelling in his legs. States that he has gotten to the point where he can no longer walk up a flight of stairs without having to stop. - Related Data Previous Rx's Medication Instructions Recorded Apixaban [Eliquis] 10 mg PO BID #90 tablet 07/24/18 Methocarbamol [Robaxin] 500 mg PO Q8HR PRN #12 tablet 07/29/18 predniSONE [PredniSONE] 20 mg PO BIDWM #10 tablet 07/29/18 Allergies Allergy/AdvReac Type Severity Reaction Status Date / Time Cyclobenzaprine Allergy Rash Verified 08/05/18 19:32 [From Flexeril] Review of Systems: As reviewed in the HPI. All other systems reviewed are negative or normal. All systems ED: reviewed and negative except as stated. Constitutional: Reports: as per HPI Eyes: Reports: as per HPI Past Medical History - Past Medical History Attestation: Yes The following information was validated with the patient. Source: patient Medical history: Reports: hypertension Surgical history: Reports: herniorrhaphy Psychiatric history: Reports: no psych history - Social History Smoking Status: Never smoker Smokeless Tobacco Status: No Alcohol use: Reports: none Drug use: Reports: none Physical Exam CONSTITUTIONAL: [well appearing, alert and in no acute distress] EYES: [EOMI, clear conjunctiva, PERRLA] HENT: [Normocephalic, atraumatic, moist mucus membranes, normal oropharynx] NECK: [normal inspection, full ROM, trachea midline, no obvious swelling] PULMONARY: [normal lung sounds bilaterally, normal chest rise and fall, no respiratory distress or stridor, no wheezes, no rales, no rhonchi CARDIOVASCULAR: [regular rate, regular rhythm, normal heart sounds, no murmurs, distal extremities are warm and well perfused] GASTROINSTESTINAL: [soft, non-tender, non-rigid, non-distended, no guarding, no rebound, normal bowel sounds] GENITOURINARY/RECTAL: [deferred] NEUROLOGIC: [Alert, oriented x3, normal speech, moves all extremities] EXTREMITIES: [Normal inspection, full ROM, no tenderness, no pedal edema, normal capillary refill] MUSCULOSKELETAL: [no gross deformities, atraumatic] SKIN: [No cyanosis, no diaphoresis, normal color, warm, no rash] PSYCHIATRIC: [normal mood and affect] - General Limitations: no limitations General appearance: alert Course Course Narrative: Patient presenting with exertional dyspnea and shortness breath. Has a history of PE that is not treated. Plan to get labs and repeat imaging. Disposition pending. Patient currently stable CTA shows worsening PEs, which is now expanding since he has not been taking his medication. No signs of right heart strain. Does have a left lower lobe reaction as the area that I do not feel like it is infectious. He has no fever or elevated white blood cell count. A nonproductive cough. We will treat patient with heparin. Patient admitted to the hospitalist service in stable condition. Pt accepted by Dr Reyes. Vital Signs O2 Sat by Pulse Oximetry 96 08/05/18 19:31 Temperature 98.6 F 08/05/18 19:36 Pulse Rate 80 08/05/18 22:00 Respiratory Rate 18 08/05/18 22:00 Blood Pressure 159/106 08/05/18 22:00 O2 Sat by Pulse Oximetry 96 08/05/18 22:00 Oxygen Delivery Oxygen Delivery Room Air Shortness of Breath/Dyspnea - Lab Data Result diagrams: 08/05/18 19:47 08/05/18 19:47 Lab Results 08/05/18 08/05/18 08/05/18 Range/Units 19:47 19:47 19:47 WBC 7.7 (4.3-11.1) K/mcL RBC 4.43 (4.19-5.50) M/mcL Hgb 13.5 (12.9-16.9) g/dL Hct 39.9 (37.5-50.1) % MCV 90.1 (83.0-100.0) fL MCH 30.5 (28.0-33.3) pg MCHC 33.8 (31.6-35.5) g/dL RDW 13.5 (11.5-14.5) % Plt Count 325 (140-400) K/mcL MPV 10.1 (9.4-12.4) fL Immature Gran % 0.4 (0-4) % Seg Neutrophils % 68.3 % Lymphocytes % 20.5 % Monocytes % 7.9 % Eosinophils % 2.5 % Basophils % 0.4 % Neutrophils # 5.3 (1.6-8.9) K/mcL Lymphocytes # 1.6 (0.6-4.6) K/mcL Monocytes # 0.6 (0.0-1.3) K/mcL Eosinophils # 0.2 (0.0-0.6) K/mcL Basophils # 0.0 (0.0-0.2) K/mcL Heparin Anti-Xa, Unfract (0.30-0.70) IU/mL Sodium 138 (136-145) mEq/L Potassium 4.3 (3.5-5.1) mEq/L Chloride 109 H (98-107) mEq/L Carbon Dioxide 20 L (23-29) mEq/L BUN 18 (6-20) mg/dL Creatinine 0.99 (0.70-1.30) mg/dL Est GFR ( Amer) > 60 (> 60) Est GFR (Non-Af Amer) > 60 (> 60) BUN/Creatinine Ratio 18 (6-26) Glucose 114 H (70-105) mg/dL Calculated Osmolality 289 (280-300) Calcium 9.5 (8.6-10.3) mg/dL Troponin I < 0.03 (< 0.04) ng/mL B-Natriuretic Peptide 39 (Less than 100) pg/mL 08/05/18 Range/Units 22:03 WBC (4.3-11.1) K/mcL RBC (4.19-5.50) M/mcL Hgb (12.9-16.9) g/dL Hct (37.5-50.1) % MCV (83.0-100.0) fL MCH (28.0-33.3) pg MCHC (31.6-35.5) g/dL RDW (11.5-14.5) % Plt Count (140-400) K/mcL MPV (9.4-12.4) fL Immature Gran % (0-4) % Seg Neutrophils % % Lymphocytes % % Monocytes % % Eosinophils % % Basophils % % Neutrophils # (1.6-8.9) K/mcL Lymphocytes # (0.6-4.6) K/mcL Monocytes # (0.0-1.3) K/mcL Eosinophils # (0.0-0.6) K/mcL Basophils # (0.0-0.2) K/mcL Heparin Anti-Xa, Unfract 0.00 L (0.30-0.70) IU/mL Sodium (136-145) mEq/L Potassium (3.5-5.1) mEq/L Chloride (98-107) mEq/L Carbon Dioxide (23-29) mEq/L BUN (6-20) mg/dL Creatinine (0.70-1.30) mg/dL Est GFR ( Amer) (> 60) Est GFR (Non-Af Amer) (> 60) BUN/Creatinine Ratio (6-26) Glucose (70-105) mg/dL Calculated Osmolality (280-300) Calcium (8.6-10.3) mg/dL Troponin I (< 0.04) ng/mL B-Natriuretic Peptide (Less than 100) pg/mL
[2018-08-05] MEDS ORDERED: Isovue-370 500 ML BOTTLE IVP ONE (20:12)
[2018-08-05 20:20] LABS: Basophils % 0.4 %; Eosinophils # 0.2 K/mcL (0.0-0.6); Eosinophils % 2.5 %; Hematocrit 39.9 % (37.5-50.1); Hemoglobin 13.5 g/dL (12.9-16.9); Immature Granulocytes % 0.4 % (0-4); Lymphocytes # 1.6 K/mcL (0.6-4.6); Lymphocytes % 20.5 %; Mean Corpuscular HGB Conc 33.8 g/dL (31.6-35.5); Mean Corpuscular Hemoglobin 30.5 pg (28.0-33.3); Mean Corpuscular Volume 90.1 fL (83.0-100.0); Mean Platelet Volume 10.1 fL (9.4-12.4); Monocytes # 0.6 K/mcL (0.0-1.3); Monocytes % 7.9 %; Neutrophils # 5.3 K/mcL (1.6-8.9); Platelet Count 325 K/mcL (140-400); Red Blood Count 4.43 M/mcL (4.19-5.50); Red Cell Distribution Width 13.5 % (11.5-14.5); Segmented Neutrophils % 68.3 %
[2018-08-05 20:34] LABS: BUN/Creatinine Ratio 18 (6-26); Blood Urea Nitrogen 18 mg/dL (6-20); Calcium 9.5 mg/dL (8.6-10.3); Carbon Dioxide 20 mEq/L (23-29); Chloride 109 mEq/L (98-107); Glucose 114 mg/dL (70-105); Osmolality,Calculated 289 (280-300); Potassium 4.3 mEq/L (3.5-5.1); Sodium 138 mEq/L (136-145); Troponin I < 0.03 ng/mL (< 0.04); eGFR For Non-African Americans > 60 (> 60)
[2018-08-05] MEDS ORDERED: *HR* Heparin 5,000 UNIT/ML VIAL IVP ONE (21:50)
[2018-08-05] MEDS ORDERED: Heparin 25,000 UNIT/250 ML D5W 25,000 UNIT/250 ML IV.SOLN IVC SCH (22:00)
[2018-08-06] MEDS ORDERED: traMADol 50 MG TABLET PO PRN (01:55)
[2018-08-06] MEDS ORDERED: Naloxone 0.4 MG/ML INJ IVP PRN (01:58)
--- NOTE | 2018-08-06 02:55 | Internal Med History&Physical ---
Date of Encounter: 08/06/18 Time of Encounter: 01:30 Internal Medicine - H&P: HPI Chief complaint: Shortness of breath Admitted From: Home Plans for Post Hospital Care: Home History of present illness: Mr. Leung is a 53 year old male with past medical history significant for PE and chronic back pain who presents for complaints of shortness of breath getting progressively worse. Was admitted on 07/23/18 and started on heparin drip for PE, discharged on 07/24/18 and sent home on Eliquis. However he states his girlfriend accidentally threw away his eliquis and he did not take any of it and his shortness of breath continued to worsen so he returned to the ER. ER obtained chest xray showing new left basilar consolidation concerning for a combination of left pleural effusion and left lower lung pneumonia or atelec tasis. ER also obtained CTA of chest showing multiple new bilateral pulmonary emboli with the largest at the segmental level with no evidence of right heart strain and mild left basilar airspace disease that could represent atelectasis, pneumonia, or less likely a developing infarct. ER also obtained EKG showing sinus rhythm unchanged from previous on 07/23/18. Shortness of breath is worse with exertion and improved with rest. Denies any headache, chest pain, cough, abdominal pain, nausea, fever, chills, bowel or bladder changes. Denies any recent surgery, travel, or prolonged immobilization. Was also seen in [facility] on 07/19/18 following intoxicated fall and transferred to [facility] for complex maxillofacial fractures. Was scheduled to follow up outpatient with [facility] at end of June but missed appointment and is working on rescheduling at this time. Reports following fall he has decided to quit drinking alcohol which he formerly did daily, reports last drink being around 2.5 weeks ago. Also reports recently moving to the area and having no current PCP and requesting assistance obtaining one. Past Med Surg Social Fam HX - Past Medical History Medical history: pulmonary embolus Additional medical history: chronic back pain Psychiatric history: no psych history - Past Surgical History Surgical History: herniorrhaphy Additional surgical history: right inguinal hernia repair - Social History Smoking Status: Never smoker Smokeless Tobacco Status: No Alcohol use: occasionally Drug use: none - Family History Mother Hx Family Endocrine Disorder: Yes (DM) Internal Medicine - H&P: Meds Apixaban [Eliquis] 10 mg PO BID #90 tablet 07/24/18 [Rx] Allergy/AdvReac Type Severity Reaction Status Date / Time Cyclobenzaprine Allergy Rash Verified 08/05/18 19:32 [From Flexeril] All Systems PM: A 10-system review of systems was performed and is negative for pertinent findings except as documented above in the HPI. - Constitutional Vitals: Temp Pulse Resp BP Pulse Ox 97.8 F 80 17 145/92 95 08/06/18 00:03 08/06/18 00:03 08/06/18 00:03 08/06/18 00:03 08/06/18 00:03 Exam: General: Alert and oriented. Skin:Normal color, no rash, no lesions. HEENT:Pupils equal, round and reactive. Cardiovascular:Normal S1 & S2, no rubs, murmurs or gallops. No JVD. Pulse regular. Lungs:Normal breath sounds, no wheezes or crackles. Abdomen:Soft, non-tender, no rigidity. Extremities:No deformity, no edema or tenderness, no joint swelling or clubbing. Neurological:Normal cognition and motor skills. Pulses:Carotid and radial pulses normal +2. Rest of the physical exam is non contributory. Internal Med - H&P Results - Labs CBC & Chem 7: 08/05/18 19:47 08/05/18 19:47 Labs: Short CBC 08/05/18 Range/Units 19:47 WBC 7.7 (4.3-11.1) K/mcL Hgb 13.5 (12.9-16.9) g/dL Hct 39.9 (37.5-50.1) % Plt Count 325 (140-400) K/mcL Neutrophils # 5.3 (1.6-8.9) K/mcL BMP 08/05/18 19:47 Sodium 138 Potassium 4.3 Chloride 109 H Carbon Dioxide 20 L BUN 18 Creatinine 0.99 Glucose 114 H Calcium 9.5 Cardiac Enzymes 08/05/18 Range/Units 19:47 Troponin I < 0.03 (< 0.04) ng/mL - Impressions ITS Impressions Chest X-Ray 08/05/18 19:35 IMPRESSION: New left basilar consolidation concerning for a combination of left pleural effusion and left lower lung pneumonia or atelectasis. D/ / Kamran Quezada / Kamran Quezada Interpreting Provider: Kamran Quezada Chest CTA 08/05/18 20:12 IMPRESSION: Multiple new bilateral pulmonary emboli with the largest at the segmental level. No evidence of right heart strain. Mild left basilar airspace disease could represent atelectasis, pneumonia or less likely developing infarct. Findings were discussed with Dr. Nida Schwab at 9:49 pm on 08/05/2018. D/ / Eric Robles MD / Eric Robles MD Interpreting Provider: Eric Robles MD - Assessment and Plan (1) Bilateral pulmonary embolism Current Visit: Yes Status: Acute Assessment and plan: Found and treated during previous visit, but never took eliquis after discharge. Chest CTA shows multiple new bilateral pulmonary emboli with the largest at the segmental level and no evidence of right heart strain. ER started heparin drip, will continue same. Continuous secured entrance monitor. (2) Dyspnea Current Visit: Yes Status: Acute Assessment and plan: Likely secondary to pulmonary emboli as chest CT shows multiple new bilateral pulmonary emboli with the largest at the segmental level and no evidence of right heart strain. Also shows mild left basilar airspace disease that could represent atelectasis, pneumonia, or less likely developing infarct. We will continue heparin drip. No infectious signs currently noted, will order blood cultures, and repeat labs in a.m. Qualifiers: Dyspnea type: unspecified Qualified Code(s): R06.00 - Dyspnea, unspecified (3) Chronic back pain Current Visit: Yes Status: Chronic Assessment and plan: Ultram PRN ordered. Qualifiers: Back pain laterality: unspecified Sciatica presence: unspecified whether sciatica present Qualified Code(s): M54.5 - Low back pain; G89.29 - Other chronic pain (4) ETOH abuse Current Visit: Yes Status: Chronic Assessment and plan: Reports stopping alcohol use following recent fall, was previously a daily drinker. Reports last drink was 2.5 weeks ago. Monitor for signs of withdrawal. - Time Spent With Patient Total time spent is greater than 50% in coordination of care (as documented) at patient's floor/unit and/or counseling patient:
[2018-08-06] MEDS ORDERED: *HR* HYDROcodone/Acet 5/325 mg TABLET PO PRN (04:21)
[2018-08-06 04:26] VITALS: BP 110/62
[2018-08-06 05:12] LABS: Hematocrit 41.3 % (37.5-50.1); Mean Corpuscular HGB Conc 33.9 g/dL (31.6-35.5); Mean Corpuscular Hemoglobin 30.4 pg (28.0-33.3); Mean Corpuscular Volume 89.6 fL (83.0-100.0); Mean Platelet Volume 9.9 fL (9.4-12.4); Platelet Count 344 K/mcL (140-400); Red Blood Count 4.61 M/mcL (4.19-5.50); Red Cell Distribution Width 13.7 % (11.5-14.5)
[2018-08-06 05:31] LABS: BUN/Creatinine Ratio 16 (6-26); Blood Urea Nitrogen 15 mg/dL (6-20); Calcium 9.4 mg/dL (8.6-10.3); Carbon Dioxide 20 mEq/L (23-29); Chloride 109 mEq/L (98-107); Glucose 93 mg/dL (70-105); Osmolality,Calculated 287 (280-300); Potassium 4.3 mEq/L (3.5-5.1); Sodium 138 mEq/L (136-145); eGFR For Non-African Americans > 60 (> 60)
--- NOTE | 2018-08-06 07:09 | Event Note ---
Date of Encounter: 08/06/18 Time of Encounter: 06:40 Notified by nurse of patient receiving phone call, becoming upset, and requesting to leave AMA. Discussed with patient at bedside, remains alert and oriented to person, place, time, and situation. Explained again the need for anticoagulation for pulmonary emboli, monitoring for infection, and not treating/monitoring will result in worsening symptoms and or . Patient declined script for anticoagulation, states significant other found filled script at home and he will call [facility] to get set up with and follow up with. AMA paper signed with nurse. Nurse removed IV's.
--- NOTE | 2018-08-06 10:34 | Electrocardiograph Report ---
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
== END 2018-08-06 07:00 | disposition left against medical advice (07) ==
LOC: 2ANU 19:21 → EMEROOARM 19:21 → 2ANU 23:54
PROVIDERS: ADMIT Family Medicine; ATTEND Family Medicine